=== PATIENT | female | born 1965 | race Asian ===

== ENCOUNTER → 2024-01-10 07:48 | Outpatient (REF) | payer OTHER, SELFPAY | LOC: WDC 07:48 | PROVIDERS: ATTENDING PHYSICIAN Obstetrics & Gynecology; FAMILY PHYSICIAN Family Medicine | DX: R92.2 Inconclusive mammogram (principal); R92.30 Dense breasts, unspecified | CPT/HCPCS: 76641 ==

== ENCOUNTER → 2025-05-11 15:22 | Outpatient (REF) | payer OTHER, SELFPAY | LOC: WDC 15:22 | PROVIDERS: ATTENDING PHYSICIAN Obstetrics & Gynecology; FAMILY PHYSICIAN Family Medicine | DX: Z12.31 Encounter for screening mammogram for malignant neoplasm of breast (principal) | CPT/HCPCS: 77063; 77067 ==